=== PATIENT | female | born 1945 | race Caucasian/White ===

== ENCOUNTER 2017-03-26 13:17 | Inpatient (IN) | payer MEDICARE, BC ==
[~2017-03-26] VITALS: Ht 165.1 cm; Wt 77.0 kg
[2017-03-26] VITALS (12 sets, daily range): BP systolic 105–148; BP diastolic 67–102; PULSE 90–155; RESP 16–18; TEMP 98.5; O2SAT 94–99
[~2017-03-26 13:17] MED LIST: AMLO5 PO; CALC600T44 PO; CLON1TAB PO; LANS30 PO; LEXA10TA PO; LORTA5 PO; SYNT25TA PO; TELM1TAB56 PO
--- NOTE | 2017-03-26 13:43 | PD ---
HPI Chief Complaint: high blood pressure Time Seen by Provider: 13:35 Travel History International Travel<30 days: No Contact w/Intl Traveler<30days: No Traveled to known affect area: No History of Present Illness HPI This 72-year-old female says she has not felt well since . On that day she started with a sore throat. Then she is in periods of sweating and just not feeling well. She's been checking her blood pressure has been on the high side. She says her pulse rate is also been elevated she has a history of hypertension and is on Micardis. She does not have any history of heart disease. She has never smoked. She is not having chest pain. [facility] Past Medical History Diminished Hearing: No Hypertension: Yes Immunizations Current: Yes Thyroid Disease: Yes Menopausal: Yes Past Surgical History Hysterectomy: Yes Social History Alcohol Use: No Tobacco Use: No Substance Use: No Allergies-Medications (Allergen,Severity, Reaction): Coded Allergies: No Known Allergies (Unverified Allergy, Unknown, 03/26/17) Reported Meds & Prescriptions Reported Meds & Active Scripts Active Reported Calcium 600+D 200 (Calcium Carbonate-Vitamin D) 600-200 Mg-Unit Tab 1 Tab PO BID Lexapro (Escitalopram Oxalate) 10 Mg Tab 10 Mg PO DAILY Lansoprazole 30 Mg Capdr 30 Mg PO DAILY Norvasc (Amlodipine Besylate) 5 Mg Tab 5 Mg PO DAILY Synthroid (Levothyroxine Sodium) 100 Mcg Tab 100 Mcg PO DAILY Micardis (Telmisartan) 80 Mg Tab 80 Mg PO DAILY Clonazepam 1 Mg Tab 1 Mg PO BID Review of Systems General / Constitutional: No: Fever, Chills Eyes: No: Diploplia, Blurred Vision HENT: No: Headaches, Vertigo Cardiovascular: No: Chest Pain or Discomfort, Palpitations, Irregular Rhythm Respiratory: Positive: Cough, Shortness of Breath Gastrointestinal: No: Nausea, Vomiting Genitourinary: No: Urgency Musculoskeletal: No: Myalgias, Arthralgias Skin: No Rash, No Itching Neurologic: No: Weakness, Dizziness Psychiatric: No: Anxiety, Depression Endocrine: No: Heat Intolerance Hematologic/Lymphatic: No: Easy Bruising Physical Exam Narrative GENERAL: Well-developed female SKIN: Focused skin assessment warm/dry. HEAD: Atraumatic. Normocephalic. EYES: Pupils equal and round. No scleral icterus. No injection or drainage. ENT: No nasal bleeding or discharge. Mucous membranes pink and moist. NECK: Trachea midline. No JVD. CARDIOVASCULAR: Rapid irregular rate and rhythm. No murmur appreciated. RESPIRATORY: No accessory muscle use. Clear to auscultation. Breath sounds equal bilaterally. GASTROINTESTINAL: Abdomen soft, non-tender, nondistended. Hepatic and splenic margins not palpable. MUSCULOSKELETAL: No obvious deformities. No clubbing. No cyanosis. No edema. NEUROLOGICAL: Awake and alert. No obvious cranial nerve deficits. Motor grossly within normal limits. Normal speech. PSYCHIATRIC: Appropriate mood and affect; insight and judgment normal. Data Data Last Documented VS Vital Signs Date Time Temp Pulse Resp B/P (MAP) Pulse Ox O2 Delivery O2 Flow Rate FiO2 03/26/17 14:20 105/69 (81) 03/26/17 14:19 98 16 96 Room Air 03/26/17 13:42 98.5 Orders Orders Electrocardiogram (03/26/17 13:43) Complete Blood Count With Diff (03/26/17 13:43) Comprehensive Metabolic Panel (03/26/17 13:43) Troponin I (03/26/17 13:43) B-Type Natriuretic Peptide (03/26/17 13:43) Prothrombin Time / Inr (Pt) (03/26/17 13:43) Act Partial Throm Time (Ptt) (03/26/17 13:43) Urinalysis - C+S If Indicated (03/26/17 13:43) Magnesium (Mg) (03/26/17 13:43) Thyroid Stimulating Hormone (03/26/17 13:43) Chest, Single Ap (03/26/17 13:43) Ecg Monitoring (03/26/17 13:52) Blood Pressure (03/26/17 13:52) Iv Access Insert/Monitor (03/26/17 13:52) Oximetry (03/26/17 13:52) Vital Signs (03/26/17 13:52) Diltiazem Inj (Cardizem Inj) (03/26/17 14:00) Diltiazem Inj (Cardizem Inj) (03/26/17 14:00) Sodium Chloride 0.9% Flush (Ns Flush) (03/26/17 14:00) Admit Order (Ed Use Only) (03/26/17 14:39) Labs Laboratory Tests Test 03/26/17 13:55 White Blood Count 10.4 TH/MM3 Red Blood Count 5.21 MIL/MM3 Hemoglobin 15.0 GM/DL Hematocrit 46.2 % Mean Corpuscular Volume 88.8 FL Mean Corpuscular Hemoglobin 28.9 PG Mean Corpuscular Hemoglobin Concent 32.5 % Red Cell Distribution Width 12.6 % Platelet Count 315 TH/MM3 Mean Platelet Volume 9.0 FL Neutrophils (%) (Auto) 75.2 % Lymphocytes (%) (Auto) 15.0 % Monocytes (%) (Auto) 7.1 % Eosinophils (%) (Auto) 0.5 % Basophils (%) (Auto) 2.2 % Neutrophils # (Auto) 7.8 TH/MM3 Lymphocytes # (Auto) 1.6 TH/MM3 Monocytes # (Auto) 0.7 TH/MM3 Eosinophils # (Auto) 0.1 TH/MM3 Basophils # (Auto) 0.2 TH/MM3 CBC Comment DIFF FINAL Differential Comment Prothrombin Time 10.7 SEC Prothromb Time International Ratio 1.1 RATIO Activated Partial Thromboplast Time 24.7 SEC Blood Urea Nitrogen 26 MG/DL Creatinine 1.50 MG/DL Random Glucose 123 MG/DL Total Protein 7.8 GM/DL Albumin 3.7 GM/DL Calcium Level 9.0 MG/DL Magnesium Level 2.3 MG/DL Alkaline Phosphatase 147 U/L Aspartate Amino Transf (AST/SGOT) 20 U/L Alanine Aminotransferase (ALT/SGPT) 26 U/L Total Bilirubin 0.5 MG/DL Sodium Level 139 MEQ/L Potassium Level 3.7 MEQ/L Chloride Level 107 MEQ/L Carbon Dioxide Level 21.4 MEQ/L Anion Gap 11 MEQ/L Estimat Glomerular Filtration Rate 34 ML/MIN Troponin I LESS THAN 0.02 NG/ML B-Type Natriuretic Peptide 130 PG/ML Thyroid Stimulating Hormone 3rd Gen 1.150 uIU/ML [facility] Medical Decision Making Medical Screen Exam Complete: Yes Emergency Medical Condition: Yes Medical Record Reviewed: Yes Differential Diagnosis Differential includes pneumonia, CHF, dysrhythmia Narrative Course EKG shows atrial fibrillation with a rapid ventricular response. On the monitor the right. From 150-120. There is a right bundle branch block which has been present on previous EKGs. Patient has been given Cardizem bolus followed by drip with control of the heart rate. Diagnosis Primary Impression: Atrial fibrillation with rapid ventricular response Scripts Apixaban (Eliquis) 5 Mg Tab 5 MG PO BID for a fib for 30 Days, #60 TAB Prov: Abena Antunez 03/27/17 Metoprolol Tartrate (Lopressor) 50 Mg Tab 50 MG PO BID for a fib for 30 Days, #60 TAB Prov: Abena Antunez 03/27/17 Kevin Watson MD Mar 26, 2017 13:43
[2017-03-26] MEDS ORDERED: LANS30CA PO (13:50)
[2017-03-26] MEDS ORDERED: LEXA10TA PO (13:50)
[2017-03-26] MEDS ORDERED: TELM1TAB56 PO (13:50)
[2017-03-26] MEDS ORDERED: LEVO.1 PO (13:50)
[2017-03-26] MEDS ORDERED: CALCTAB19 PO (13:50)
[2017-03-26] MEDS ORDERED: CLON1TAB PO (13:50)
[2017-03-26] MEDS ORDERED: AMLO5 PO (13:50)
[2017-03-26] MEDS ORDERED: DILTIAZEM INJ 125 MG in SODIUM CHLORIDE 0.9% INJ 100 ML IV PRN ×2 (14:00→17:00)
[2017-03-26] MEDS ORDERED: DILTIAZEM HCL 25 MG/5 ML VIAL IV PUSH ONE (14:00)
[2017-03-26] MEDS ORDERED: SODIUM CHLORIDE 0.9% FLUSH 10 ML FLUSH IV FLUSH PRN ×2 (14:00→15:00)
[2017-03-26 14:10] LABS: AUTOMATED NEUTROPHIL # 7.8 TH/MM3 (1.8-7.7); BASOPHIL # 0.2 TH/MM3 (0-0.2); BASOPHIL % 2.2 % (0.0-2.0); EOSINOPHIL # 0.1 TH/MM3 (0-0.4); EOSINOPHIL % 0.5 % (0.0-4.0); HEMATOCRIT 46.2 % (35.0-46.0); LYMPHOCYTE # 1.6 TH/MM3 (1.0-4.8); MEAN CELL VOLUME 88.8 FL (80.0-100.0); MEAN CORPUSCULAR HEMOGLOBIN 28.9 PG (27.0-34.0); MEAN CORPUSCULAR HGB CONC 32.5 % (32.0-36.0); MONO % 7.1 % (0.0-8.0); MONOCYTE # 0.7 TH/MM3 (0-0.9); NEUT % 75.2 % (16.0-70.0); PLATELET COUNT 315 TH/MM3 (150-450); RED BLOOD COUNT 5.21 MIL/MM3 (4.00-5.30); RED CELL DISTRIBUTION WIDTH 12.6 % (11.6-17.2); WHITE BLOOD COUNT 10.4 TH/MM3 (4.0-11.0)
[2017-03-26 14:18] LABS: CHLORIDE 107 MEQ/L (98-107); SODIUM (NA) 139 MEQ/L (136-145)
--- NOTE | 2017-03-26 14:19 | RADRPT ---
EXAM DATE/TIME: 03/26/2017 13:52 [facility] COMPARISON: CHEST SINGLE AP, November 22, 2015, 20:10. INDICATIONS : Chest pain. MEDICAL HISTORY : None. SURGICAL HISTORY : None. ENCOUNTER: Initial ACUITY: 3 weeks PAIN SCORE: 2/10 LOCATION: Bilateral chest. FINDINGS: A single view of the chest demonstrates the lungs to be symmetrically aerated without evidence of mas s, infiltrate or effusion. There is mild atelectasis and scarring at the lung bases. The cardiomedia stinal contours are unremarkable. Osseous structures are intact. CONCLUSION: Mild atelectasis and/or scarring in the lung bases with no definite acute cardiac pulmonary disease. Andrew Gordon MD on March 26, 2017 at 14:16 Board Certified Radiologist. This report was verified electronically.
[2017-03-26 14:23] LABS: ALBUMIN 3.7 GM/DL (3.4-5.0); BICARBONATE 21.4 MEQ/L (21.0-32.0); BLOOD UREA NITROGEN 26 MG/DL (7-18); GLUCOSE,RANDOM 123 MG/DL (74-106); INTERNATIONAL NORMALIZED RATIO 1.1 RATIO; MAGNESIUM 2.3 MG/DL (1.5-2.5); PROTHROMBIN TIME - PATIENT 10.7 SEC (9.8-11.6)
[2017-03-26 14:26] LABS: ALT (GPT) 26 U/L (10-53); AST (GOT) 20 U/L (15-37); GLOMERULAR FILTRATION RATE 34 ML/MIN (>89)
[2017-03-26 14:27] LABS: TOTAL BILIRUBIN ADULT 0.5 MG/DL (0.2-1.0)
[2017-03-26 14:28] LABS: TOTAL PROTEIN 7.8 GM/DL (6.4-8.2)
[2017-03-26 14:29] LABS: ALKALINE PHOSPHATASE 147 U/L (45-117)
[2017-03-26 14:31] LABS: TROPONIN I LESS THAN 0.02 NG/ML (0.02-0.05)
[2017-03-26] MEDS ORDERED: BISACODYL 10 MG SUPP RECTAL PRN (15:00)
[2017-03-26] MEDS ORDERED: ACETAMINOPHEN 325 MG TAB PO PRN (15:00)
[2017-03-26] MEDS ORDERED: ONDANSETRON HCL 4 MG/2 ML VIAL IVP PRN (15:00)
[2017-03-26] MEDS ORDERED: MAGNESIUM HYDROXIDE SUSP 30 ML CUP PO PRN (15:00)
[2017-03-26] MEDS ORDERED: SENNOSIDES 8.6 MG TAB PO PRN (15:00)
[2017-03-26] MEDS ORDERED: LACTULOSE SYRUP 20 GM/30 ML CUP PO PRN (15:00)
[2017-03-26] MEDS ORDERED: NALOXONE HCL 0.4 MG/ML AMP IV PUSH PRN (15:00)
--- NOTE | 2017-03-26 15:52 | HHI.HP ---
HPI Service [facility] Primary Care Physician Gabrielle Roque MD Admission Diagnosis NEW ONSET ATRIAL FIBRILLATION, RAPID VENTRICULAR RESPONSE Diagnoses: Chief Complaint: sob Travel History International Travel<30 Days: No Contact w/Intl Traveler <30 Da: No Traveled to Known Affected Are: No History of Present Illness This 72-year-old female with PMH of HTN, hypothyroidism, anxiety/depression, GERD says she has not felt well since . On that day she started with a sore throat. Then she is in periods of sweating and just not feeling well. She has been coughing but cough is getting better. She's been checking her blood pressure has been on the high side. She says her pulse rate is also been elevated she has a history of hypertension and is on Micardis. Says she felt palpitations today and some sob associated. She does not have any history of heart disease. She has never smoked, no illicit drug use or EtOH use. She is not having chest pain, lightheadedness. No n/v/d/c. No wheezing. Patient has seen Dr Baker in the past and would like to be consulted Review of Systems Except as stated in HPI: all other systems reviewed are Neg Past Family Social History Past Medical History HTN, hypothyroidism, anxiety/depression, GERD Past Surgical History Appendectomy Back surgery Cardiac [place] [address] Baker Reported Medications Reported Meds & Active Scripts Active Reported Calcium 600+D 200 (Calcium Carbonate-Vitamin D) 600-200 Mg-Unit Tab 1 Tab PO BID Lexapro (Escitalopram Oxalate) 10 Mg Tab 10 Mg PO DAILY Lansoprazole 30 Mg Capdr 30 Mg PO DAILY Norvasc (Amlodipine Besylate) 5 Mg Tab 5 Mg PO DAILY Synthroid (Levothyroxine Sodium) 100 Mcg Tab 100 Mcg PO DAILY Micardis (Telmisartan) 80 Mg Tab 80 Mg PO DAILY Clonazepam 1 Mg Tab 1 Mg PO BID Allergies: Coded Allergies: No Known Allergies (Unverified Allergy, Unknown, 03/26/17) Family History Parents with HTN Social History Denies EtOH use, tobacco use or illicit drug use Physical Exam Vital Signs Vital Signs Date Time Temp Pulse Resp B/P (MAP) Pulse Ox O2 Delivery O2 Flow Rate FiO2 03/26/17 15:11 94 16 111/70 (84) 94 Room Air 03/26/17 14:20 105/69 (81) 03/26/17 14:19 98 16 105/69 (81) 96 Room Air 03/26/17 14:17 96 105/69 03/26/17 14:01 97 Room Air 03/26/17 14:01 140 16 139/102 (114) 98 Room Air 03/26/17 13:42 98.5 155 16 137/80 (99) 98 Physical Exam GENERAL: This is a well-nourished, well-developed patient, in no apparent distress. SKIN: No rashes, ecchymoses or lesions. Cool and dry. HEAD: Atraumatic. Normocephalic. No temporal or scalp tenderness. EYES: Pupils equal round and reactive. Extraocular motions intact. No scleral icterus. No injection or drainage. ENT: Nose without bleeding, purulent drainage or septal hematoma. Throat without erythema, tonsillar hypertrophy or exudate. Uvula midline. Airway patent. NECK: Trachea midline. No JVD or lymphadenopathy. Supple, nontender, no meningeal signs. CARDIOVASCULAR: Irregular rate and rhythm without murmurs, gallops, or rubs. RESPIRATORY: Clear to auscultation. Breath sounds equal bilaterally. No wheezes , rales, or rhonchi. GASTROINTESTINAL: Abdomen soft, non-tender, nondistended. No hepato-splenomegaly , or palpable masses. No guarding. MUSCULOSKELETAL: Extremities without clubbing, cyanosis, or edema. No joint tenderness, effusion, or edema noted. No calf tenderness. Negative Homans sign bilaterally. NEUROLOGICAL: Awake and alert. Cranial nerves II through XII intact. Motor and sensory grossly within normal limits. Five out of 5 muscle strength in all muscle groups. Normal speech. Laboratory Laboratory Tests Test 03/26/17 13:55 White Blood Count 10.4 Red Blood Count 5.21 Hemoglobin 15.0 Hematocrit 46.2 Mean Corpuscular Volume 88.8 Mean Corpuscular Hemoglobin 28.9 Mean Corpuscular Hemoglobin Concent 32.5 Red Cell Distribution Width 12.6 Platelet Count 315 Mean Platelet Volume 9.0 Neutrophils (%) (Auto) 75.2 Lymphocytes (%) (Auto) 15.0 Monocytes (%) (Auto) 7.1 Eosinophils (%) (Auto) 0.5 Basophils (%) (Auto) 2.2 Neutrophils # (Auto) 7.8 Lymphocytes # (Auto) 1.6 Monocytes # (Auto) 0.7 Eosinophils # (Auto) 0.1 Basophils # (Auto) 0.2 CBC Comment DIFF FINAL Differential Comment Prothrombin Time 10.7 Prothromb Time International Ratio 1.1 Activated Partial Thromboplast Time 24.7 Blood Urea Nitrogen 26 Creatinine 1.50 Random Glucose 123 Total Protein 7.8 Albumin 3.7 Calcium Level 9.0 Magnesium Level 2.3 Alkaline Phosphatase 147 Aspartate Amino Transf (AST/SGOT) 20 Alanine Aminotransferase (ALT/SGPT) 26 Total Bilirubin 0.5 Sodium Level 139 Potassium Level 3.7 Chloride Level 107 Carbon Dioxide Level 21.4 Anion Gap 11 Estimat Glomerular Filtration Rate 34 Troponin I LESS THAN 0.02 B-Type Natriuretic Peptide 130 Thyroid Stimulating Hormone 3rd Gen 1.150 Result Diagram: 03/26/17 1355 03/26/17 1355 Imaging Last Impressions Chest X-Ray 03/26/17 1343 Signed Impressions: Service Date/Time: March 13:52 - CONCLUSION: Mild atelectasis and/or scarring in the lung bases with no definite acute cardiac pulmonary disease. MD Steve Ash VTE Risk Assessment Steve VTE Risk Assessment: Mod/High Risk (score >= 2) Caprini Risk Assessment Model Point Value = 1 Point Value = 2 Point Value = 3 Point Value = 5 Age 41-60 Minor surgery BMI > 25 kg/m2 Swollen legs Varicose veins or History of unexplained or recurrent spontaneous Oral contraceptives or hormone replacement Sepsis (< 1 month) Serious lung disease, including pneumonia (< 1 month) Abnormal pulmonary function Acute myocardial infarction Congestive heart failure (< 1 month) History of inflammatory bowel disease Medical patient at bed rest Age 61-74 Arthroscopic surgery Major open surgery (> 45 min) Laparoscopic surgery (> 45 min) Malignancy Confined to bed (> 72 hours) Immobilizing plaster cast Central venous access Age >= 75 History of VTE Family history of VTE Factor V Leiden Prothrombin [id number] Lupus anticoagulant Anticardiolipin antibodies Elevated serum homocysteine Heparin-induced thrombocytopenia Other congenital or acquired thrombophilia Stroke (< 1 month) Elective arthroplasty Hip, pelvis, or leg fracture Acute spinal cord injury (< 1 month) Prophylaxis Regimen Total Risk Factor Score Risk Level Prophylaxis Regimen 0-1 Low Early ambulation 2 Moderate Order ONE of the following: *Sequential Compression Device (SCD) *Heparin 5000 units SQ BID 3-4 Higher Order ONE of the following medications: *Heparin 5000 units SQ TID *Enoxaparin/Lovenox 40 mg SQ daily (WT < 150 kg, CrCl > 30 mL/min) *Enoxaparin/Lovenox 30 mg SQ daily (WT < 150 kg, CrCl > 10-29 mL/min) *Enoxaparin/Lovenox 30 mg SQ BID (WT < 150 kg, CrCl > 30 mL/min) AND/OR *Sequential Compression Device (SCD) 5 or more Highest Order ONE of the following medications: *Heparin 5000 units SQ TID (Preferred with Epidurals) *Enoxaparin/Lovenox 40 mg SQ daily (WT < 150 kg, CrCl > 30 mL/min) *Enoxaparin/Lovenox 30 mg SQ daily (WT < 150 kg, CrCl > 10-29 mL/min) *Enoxaparin/Lovenox 30 mg SQ BID (WT < 150 kg, CrCl > 30 mL/min) AND *Sequential Compression Device (SCD) Assessment and Plan Assessment and Plan New onset Atrial fibrillation with rapid ventricular response EKG shows atrial fibrillation with a rapid ventricular response. HR 120-150. There is a right bundle branch block which has been present on previous EKGs. Started on Cardizem bolus followed by drip with control of the heart rate. Transition to PO Cardizem Monitor on assistant food service manager BP Order 2D ECHO [id number] Vasc score of 3 start eliquis Check A1c Has seen Dr Baker in the past and wants to be consulted LATRELL Cr 1.5 on admission however not known kidney function, last Cr 2 years ago 0.9 . Start IVF. Monitor kidney function. Avoid nephrotoxic agents. Check UA. HTN, hypothyroidism, depression/anxiety, GERD stable. Restart home meds as appropriate Monitor BP and adjust meds DVT ppx [email or web address] frank Discussed Condition With nurse, patient, ED physician Physician Certification 2 Midnight Certification Type: Admission for Inpatient Services Order for Inpatient Services The services are ordered in accordance with Medicare regulations or non- Medicare payer requirements, as applicable. In the case of services not specified as inpatient-only, they are appropriately provided as inpatient services in accordance with the 2-midnight benchmark. Estimated LOS (days): 3 days is the estimated time the patient will need to remain in the hospital, assuming treatment plan goals are met and no additional complications. Post-Hospital Plan: Home Isidra Regan MD Mar 26, 2017 15:52
[2017-03-26] MEDS ORDERED: ENOXAPARIN SODIUM 40 MG/0.4 ML SYRINGE SQ SCH (16:00)
[2017-03-26] MEDS: DILTIAZEM HCL 30 MG TAB PO SCH ×2 (18:48→21:00)
[2017-03-26] MEDS: SODIUM CHLORIDE 0.9% FLUSH 10 ML FLUSH IV FLUSH SCH (21:00)
[2017-03-26] MEDS: DOCUSATE SODIUM 50 MG/SENNA 8.6 MG TAB PO SCH (22:00)
[2017-03-26] MEDS: CALCIUM/VITAMIN D 250 MG/125 U TAB PO SCH (22:00)
[2017-03-26] MEDS: clonazePAM 1 MG TAB PO SCH (22:00)
[2017-03-26] MEDS: APIXABAN 5 MG TABLET PO SCH (22:00)
[2017-03-26 22:18] LABS: BILIRUBIN, URINE NEG (NEG); BLOOD, URINE NEG (NEG); GLUCOSE,URINE NEG (NEG); KETONE, URINE TRACE mg/dL (NEG); NITRITE,URINE NEG (NEG); URINE LEUKOCYTE ESTERASE NEG (NEG)
[2017-03-26 22:24] LABS: URINE COLOR YELLOW (YELLW/STRAW)
[2017-03-26 22:25] LABS: RBC, URINE 0-3 /hpf (0-3); SQUAMOUS EPITHELIAL CELL URINE 0-5 /hpf (0-5); WHITE BLOOD CELL CLUMPS FEW
[2017-03-27] VITALS (13 sets, daily range): BP systolic 127–159; BP diastolic 72–90; PULSE 80–108; RESP 8–19; TEMP 97.9–98.7; O2SAT 94–99
--- NOTE | 2017-03-27 00:01 | RADRPT ---
EXAM DATE/TIME: 03/26/2017 23:21 [facility] COMPARISON: No previous studies available for comparison. INDICATIONS : Increased Bun and Creatinine. MEDICAL HISTORY : Thyroid disease. Hypertension. GERD. SURGICAL HISTORY : Back surgery. Appendectomy. Hysterectomy. ENCOUNTER: Initial ACUITY: 1 day PAIN SCORE: 0/10 LOCATION: Bilateral inguinal MEASUREMENTS: RIGHT KIDNEY: 11.5 x 4.6 x 5.5 cm LEFT KIDNEY: 10.2 x 4.4 x 5.0 cm FINDINGS: RIGHT KIDNEY: Renal cortex is normal in thickness and echotexture. No hydronephrosis, stone, or mass. LEFT KIDNEY: Renal cortex is normal in thickness and echotexture. No hydronephrosis, stone, or mass. BLADDER: Within normal limits given the degree of distension. CONCLUSION: Unremarkable bilateral renal ultrasound. Walt Lozoya MD on March 26, 2017 at 23:59 Board Certified Radiologist. This report was verified electronically.
[2017-03-27 05:43] LABS: AUTOMATED NEUTROPHIL # 5.9 TH/MM3 (1.8-7.7); BASOPHIL % 0.5 % (0.0-2.0); EOSINOPHIL # 0.1 TH/MM3 (0-0.4); EOSINOPHIL % 1.3 % (0.0-4.0); HEMATOCRIT 45.2 % (35.0-46.0); HEMOGLOBIN 14.8 GM/DL (11.6-15.3); LYMPH % 23.7 % (9.0-44.0); LYMPHOCYTE # 2.1 TH/MM3 (1.0-4.8); MEAN CELL VOLUME 88.5 FL (80.0-100.0); MEAN CORPUSCULAR HGB CONC 32.8 % (32.0-36.0); MEAN PLATELET VOLUME 9.1 FL (7.0-11.0); MONO % 7.2 % (0.0-8.0); MONOCYTE # 0.6 TH/MM3 (0-0.9); NEUT % 67.3 % (16.0-70.0); PLATELET COUNT 275 TH/MM3 (150-450); RED CELL DISTRIBUTION WIDTH 12.8 % (11.6-17.2); WHITE BLOOD COUNT 8.7 TH/MM3 (4.0-11.0)
[2017-03-27 05:52] LABS: CHLORIDE 105 MEQ/L (98-107); SODIUM (NA) 140 MEQ/L (136-145)
[2017-03-27 05:55] LABS: CALCIUM 8.7 MG/DL (8.5-10.1)
[2017-03-27 05:56] LABS: BICARBONATE 26.6 MEQ/L (21.0-32.0); BLOOD UREA NITROGEN 24 MG/DL (7-18); GLUCOSE,RANDOM 105 MG/DL (74-106)
[2017-03-27 05:59] LABS: GLOMERULAR FILTRATION RATE 54 ML/MIN (>89)
[2017-03-27] MEDS ORDERED: LEVOTHYROXINE SODIUM 100 MCG TAB PO SCH (06:00)
[2017-03-27] MEDS: clonazePAM 1 MG TAB PO SCH (08:20)
[2017-03-27] MEDS: CALCIUM/VITAMIN D 250 MG/125 U TAB PO SCH (08:20)
[2017-03-27] MEDS: DOCUSATE SODIUM 50 MG/SENNA 8.6 MG TAB PO SCH (08:20)
[2017-03-27] MEDS: APIXABAN 5 MG TABLET PO SCH (08:21)
[2017-03-27] MEDS: DILTIAZEM HCL 30 MG TAB PO SCH (08:21)
--- NOTE | 2017-03-27 08:38 | HHI.PR ---
Subjective Remarks Patient in nad. Feels better no palpitations, HR better controlled. No sob, cp, cough. No fever or chillls. No n/v/d/c. Objective Vitals Vital Signs Date Time Temp Pulse Resp B/P (MAP) Pulse Ox O2 Delivery O2 Flow Rate FiO2 03/27/17 07:15 92 16 135/87 (103) 97 03/27/17 05:32 98 16 132/80 (97) 99 Room Air 03/27/17 01:05 99 21 03/27/17 00:05 98.7 92 16 159/86 (110) 99 Room Air 03/26/17 23:15 92 16 144/79 (100) 99 03/26/17 22:05 112 18 148/89 (108) 99 Room Air 03/26/17 20:26 90 16 125/78 (94) 99 03/26/17 19:24 92 16 135/84 (101) 99 Room Air 03/26/17 19:24 92 99 Room Air 03/26/17 18:49 98 16 134/67 (89) 98 Room Air 03/26/17 16:16 92 16 141/88 (105) 97 Room Air 03/26/17 16:00 97 21 03/26/17 15:11 94 16 111/70 (84) 94 Room Air 03/26/17 14:20 105/69 (81) 03/26/17 14:19 98 16 105/69 (81) 96 Room Air 03/26/17 14:17 96 105/69 03/26/17 14:01 97 Room Air 03/26/17 14:01 140 16 139/102 (114) 98 Room Air 03/26/17 13:42 98.5 155 16 137/80 (99) 98 I/O 03/26/17 03/26/17 03/26/17 03/27/17 03/27/17 03/27/17 07:00 15:00 23:00 07:00 15:00 23:00 Intake Total 400 ml Output Total 500 ml 300 ml Balance -100 ml -300 ml Intake Oral 400 ml Output Urine Total 500 ml 300 ml # Voids 2 3 # Bowel Movements 0 Result Diagram: 03/27/17 0530 03/27/17 0530 Imaging Last Impressions Chest X-Ray 03/26/17 1343 Signed Impressions: Service Date/Time: March 13:52 - CONCLUSION: Mild atelectasis and/or scarring in the lung bases with no definite acute cardiac pulmonary disease. Andrew Gordon MD Renal Ultrasound 03/26/17 0000 Signed Impressions: Service Date/Time: March 23:21 - CONCLUSION: Unremarkable bilateral renal ultrasound. Walt Lozoya MD Objective Remarks GENERAL: This is a well-nourished, well-developed patient, in no apparent distress. CARDIOVASCULAR: Irregular rate and rhythm without murmurs, gallops, or rubs. RESPIRATORY: Clear to auscultation. Breath sounds equal bilaterally. No wheezes , rales, or rhonchi. GASTROINTESTINAL: Abdomen soft, non-tender, nondistended. No hepato-splenomegaly , or palpable masses. No guarding. MUSCULOSKELETAL: Extremities without clubbing, cyanosis, or edema. No joint tenderness, effusion, or edema noted. No calf tenderness. Negative Homans sign bilaterally. NEUROLOGICAL: Awake and alert. Cranial nerves II through XII intact. Motor and sensory grossly within normal limits. Five out of 5 muscle strength in all muscle groups. Normal speech. A/P Assessment and Plan New onset Atrial fibrillation with rapid ventricular response EKG shows atrial fibrillation with a rapid ventricular response. HR 120-150. There is a right bundle branch block which has been present on previous EKGs. Started on Cardizem bolus followed by drip with control of the heart rate. Transition to PO Cardizem Monitor on investigation officer BP 2D ECHO pending [id number] Vasc score of 3 start Eliquis A1c pending Has seen Dr Samuel lazaro in the past and wants to be consulted. Start metoprolol 50 mg po bid. ECHO fairly normal seen by cardiology cleared patient for DC. LATRELL Cr 1.5 on admission however not known kidney function, last Cr 2 years ago 0.9 . Start IVF. Monitor kidney function. Avoid nephrotoxic agents. Check UA. Cr at 1 today improved significantly HTN, hypothyroidism, depression/anxiety, GERD stable. Restart home meds as appropriate Monitor BP and adjust meds DVT ppx [email or web address] frank Discussed Condition With nurse, patient Discharge Planning DC home in stable condition to follow up as OP with PCP and consultants. Diet healthy heart diet Activity ad andreas as tolerated Meds per med reconciliations Discharge spent at discharge > 30 minutes Isidra Regan MD Mar 27, 2017 08:37
[2017-03-27] MEDS ORDERED: LOSARTAN 50 MG TAB PO SCH (09:00)
[2017-03-27] MEDS ORDERED: MAGNESIUM OXIDE 400 MG TAB PO ONE (09:00)
[2017-03-27] MEDS ORDERED: PANTOPRAZOLE SOD 40 MG DELAYED RELEASE TAB PO SCH (09:00)
[2017-03-27] MEDS ORDERED: ESCITALOPRAM OXALATE 10 MG TAB PO SCH (09:00)
[2017-03-27] MEDS ORDERED: amLODIPine BESYLATE 5 MG TAB PO SCH (09:00)
[2017-03-27] MEDS ORDERED: POTASSIUM CHLORIDE 10 MEQ CONTROLLED RELEASE TAB PO ONE (09:00)
[2017-03-27] MEDS: SODIUM CHLORIDE 0.9% FLUSH 10 ML FLUSH IV FLUSH SCH (10:39)
[2017-03-27] MEDS ORDERED: METOPROLOL TARTRATE 50 MG TAB PO ONE (11:00)
--- NOTE | 2017-03-27 11:33 | ECHRPT ---
Indication: ATRIAL FIB/ FLUTTER CONCLUSIONS Normal left ventricular size. Mild concentric left ventricular hypertrophy. The left ventricular systolic function is grossly normal on limited imaging. The left atrial size is [id number] dilated. The right atrial size is mildly dilated. No atrial level shunt is demonstrated by color flow Doppler interrogation. There is trace tricuspid valve regurgitation. The estimated pulmonary arterial pressure is 37.2 mmHg. BP: 135 / 87 HR: 92 Rhythm: Atrial fibrillation, Atrial flut ter MEASUREMENTS (Male / Female) Normal Values Technical Quality:Very technically difficult study 2D ECHO LV Diastolic Diameter PLAX 3.4 cm 4.2 - 5.9 / 3.9 - 5.3 cm LV Systolic Diameter PLAX 2.1 cm IVS Diastolic Thickness 1.2 cm 0.6 - 1.0 / 0.6 - 0.9 cm LVPW Diastolic Thickness 1.2 cm 0.6 - 1.0 / 0.6 - 0.9 cm LV Relative Wall Thickness 0.7 LVOT Diameter 2.1 cm Aortic Root Diameter 3.1 cm LA Systolic Diameter LX 2.9 cm 3.0 - 4.0 / 2.7 - 3.8 cm M-MODE AV Cusp Separation MM 1.8 cm DOPPLER AV Peak Velocity 108.8 cm/s AV Peak Gradient 4.7 mmHg AV Mean Gradient 3.0 mmHg AV Velocity Time Integral 14.3 cm LVOT Peak Velocity 77.0 cm/s LVOT Peak Gradient 2.4 mmHg LVOT Velocity Time Integral 12.4 cm AV Area Cont Eq vti 3.0 cm AV Area Cont Eq pk 2.5 cm Mitral E Point Velocity 88.8 cm/s LV E' Lateral Velocity 10.4 cm/s Mitral E to LV E' Lateral Ratio 8.5 LV E' Septal Velocity 7.5 cm/s Mitral E to LV E' Septal Ratio 11.8 TR Peak Velocity 261.0 cm/s TR Peak Gradient 27.2 mmHg Right Atrial Pressure 10.0 mmHg Pulmonary Artery Systolic Pressu 37.2 mmHg Right Ventricular Systolic Press 37.2 mmHg PV Peak Velocity 49.3 cm/s PV Peak Gradient 1.0 mmHg FINDINGS LEFT VENTRICLE Normal left ventricular size. Mild concentric left ventricular hypertrophy. The left ventricular systolic function is grossly normal on limited imaging. RIGHT VENTRICLE Normal right ventricular size and systolic function. LEFT ATRIUM The left atrial size is [id number] dilated. RIGHT ATRIUM The right atrial size is mildly dilated. ATRIAL SEPTUM No atrial level shunt is demonstrated by color flow Doppler interrogation. AORTA The aortic root and proximal ascending aorta are normal in size on limited imaging. MITRAL VALVE Structurally normal mitral valve. No mitral valve stenosis or regurgitation. AORTIC VALVE Trileaflet aortic valve. No aortic valve stenosis or regurgitation. TRICUSPID VALVE There is trace tricuspid valve regurgitation. The estimated pulmonary arterial pressure is 37.2 mmHg. PULMONARY VALVE No pulmonary valve regurgitation or stenosis. VESSELS The inferior vena cava is normal in size. PERICARDIUM No pericardial effusion. Christiano Ralph MD, FACC (Electronically Signed) Final Date:27 March 2017 11:32
--- NOTE | 2017-03-27 12:12 | HHI.DCPOC ---
Discharge Care Plan Diagnosis: (1) Atrial fibrillation with rapid ventricular response Goals to Promote Your Health * To prevent worsening of your condition and complications * To maintain your health at the optimal level Directions to Meet Your Goals Take your medications as prescribed Follow your dietary instruction Follow activity as directed Keep your appointments as scheduled Take your immunizations and boosters as scheduled If your symptoms worsen call your PCP, if no PCP go to Urgent Care Center or Emergency Room Smoking is Dangerous to Your Health. Avoid second hand smoke Call the 24-hour hour crisis hotline for domestic abuse at Abena Antunez Mar 27, 2017 12:12
[2017-03-27] MEDS ORDERED: APIX5TAB PO (12:15)
[2017-03-27] MEDS ORDERED: METO-309 PO (12:15)
--- NOTE | 2017-03-27 14:18 | EKG ---
Date Performed: 03/26/2017 Time Performed: 13:44:22 PTAGE: 72 years EKG: ATRIAL FIBRILLATION WITH RAPID VENTRICULAR RESPONSE RIGHT BUNDLE BRANCH BLOCK ST DEVIATION AND MODERATE T-WAVE ABNORMALITY, CONSIDER INFERIOR ISCHEMIA ABNORMAL ECG PREVIOUS TRACING : 11/22/2015 22.20 Patient is now in atrial fibrillation with rapid ventricula r response. DOCTOR: Vernon Martinez Interpretating Date/Time 03/27/2017 14:16:42
[2017-03-27 15:36] LABS: HEMOGLOBIN A1C 6.3 % (4.3-6.0)
--- NOTE | 2017-03-27 16:43 | MB ---
cc: TY PACKER MD DATE OF CONSULTATION 03/27/[address] Regan CHIEF COMPLAINT Atrial fibrillation. IMPRESSION 1. Atrial fibrillation. 2. History of hypertension. RECOMMENDATIONS She has been anticoagulated with Eliquis, given metoprolol 50 mg twice a day for rate control. I will discharge her and see her next week in the office. SUBJECTIVE Ms. Mendoza is a 72-year-old white female, of a patient of ours, who has not been seen in the office in some time. She had the flu last week and then developed a rapid heart rate up to 116 yesterday evening and came to the emergency room. She was found to be in atrial fibrillation, subsequently put in the intensive care unit, given Lovenox and a Diltiazem drip. She feels well and wishes to go home. She denies chest tightness, heaviness, fullness or pressure. Troponins were negative. Echocardiogram is pending. PAST MEDICAL HISTORY Remarkable for a hysterectomy MEDICATIONS 1. Micardis 2. Diltiazem 3. Metoprolol 4. Eliquis recently started ALLERGIES No known medication allergies. SOCIAL HISTORY Does not smoke or drink. Lives at home with her who is invalid. FAMILY HISTORY Noncontributory. REVIEW OF SYSTEMS GI: No hematemesis, melena per rectum. RESPIRATORY: Bronchitis although she did have flu recently NEUROLOGIC: No history of stroke, epilepsy, TIA. Other twelve-point review of systems negative. PHYSICAL EXAMINATION VITAL SIGNS: Blood pressure is 112/64, heart rate 86 and irregular. HEENT: Sclerae clear. NECK: Neck veins are not distended. LUNGS: Clear to auscultation and percussion. CARDIAC: Irregular rhythm. No murmurs or gallops. ABDOMEN: Mildly obese without organomegaly, mass or bruits. EXTREMITIES: Without edema. Right-handed, fluent speech, moves all extremities. Gait is intact. Laboratory and electrocardiogram were reviewed. DISCUSSION None Ty Packer MD [facility]/ /4:16 PM /4:29 PM
[2017-03-27] MEDS ORDERED: METOPROLOL TARTRATE 50 MG TAB PO SCH (21:00)
== END 2017-03-27 13:15 | disposition home or self-care (01) | DRG 309 ==
LOC: PHED 13:17 → PHEDA 14:40 → PHEDH 18:46 → PHICU 03-27 07:27
PROVIDERS: ADMIT Hospitalist; ATTEND Hospitalist
DX: I48.91 Unspecified atrial fibrillation (principal); N17.9 Acute kidney failure, unspecified; I45.10 Unspecified right bundle-branch block; I10 Essential (primary) hypertension; E03.9 Hypothyroidism, unspecified; J02.9 Acute pharyngitis, unspecified; F32.9 Major depressive disorder, single episode, unspecified; F41.9 Anxiety disorder, unspecified; K21.9 Gastro-esophageal reflux disease without esophagitis; Z90.710 Acquired absence of both cervix and uterus
CPT/HCPCS: 71045; 76775; 80048; 80053; 81001; 82948; 83036; 83735; 83880; 84443; 84484; 85025; 85610; 85730; 87086; 93005; 93306; 96365; 96375; J1650

== ENCOUNTER 2017-04-28 09:06 | Emergency (ER) | payer MEDICARE, BC ==
[~2017-04-28] VITALS: Ht 165.1 cm; Wt 77.0 kg
[~2017-04-28 09:06] MED LIST changes: +APIX5TAB PO; -CALC600T44 PO; +CALCTAB19 PO; -LANS30 PO; +LANS30CA PO; +LEVO.1 PO; -LORTA5 PO; +METO-309 PO; -SYNT25TA PO
[2017-04-28 09:22] VITALS: BP 136/74; PULSE 69; RESP 18; TEMP 100; O2SAT 96
[2017-04-28] MEDS ORDERED: SODIUM CHLOR 0.9% 1000 ML INJ 1,000 ML IV SCH (09:36)
[2017-04-28] MEDS ORDERED: SODIUM CHLORIDE 0.9% FLUSH 10 ML FLUSH IV FLUSH PRN (09:45)
[2017-04-28] MEDS ORDERED: ONDANSETRON HCL 4 MG/2 ML VIAL IVP ONE (09:45)
[2017-04-28 10:08] LABS: AUTOMATED NEUTROPHIL # 12.5 TH/MM3 (1.8-7.7); BASOPHIL # 0.4 TH/MM3 (0-0.2); BASOPHIL % 2.7 % (0.0-2.0); HEMATOCRIT 45.8 % (35.0-46.0); HEMOGLOBIN 14.9 GM/DL (11.6-15.3); LYMPH % 2.4 % (9.0-44.0); LYMPHOCYTE # 0.3 TH/MM3 (1.0-4.8); MEAN CELL VOLUME 88.8 FL (80.0-100.0); MEAN CORPUSCULAR HEMOGLOBIN 28.9 PG (27.0-34.0); MEAN CORPUSCULAR HGB CONC 32.5 % (32.0-36.0); MEAN PLATELET VOLUME 9.4 FL (7.0-11.0); MONO % 4.8 % (0.0-8.0); MONOCYTE # 0.7 TH/MM3 (0-0.9); NEUT % 90.1 % (16.0-70.0); PLATELET COUNT 205 TH/MM3 (150-450); RED BLOOD COUNT 5.16 MIL/MM3 (4.00-5.30); RED CELL DISTRIBUTION WIDTH 13.4 % (11.6-17.2); WHITE BLOOD COUNT 13.9 TH/MM3 (4.0-11.0)
--- NOTE | 2017-04-28 10:12 | PD ---
HPI Chief Complaint: Abdominal Pain Time Seen by Provider: 09:36 Travel History International Travel<30 days: No Contact w/Intl Traveler<30days: No Traveled to known affect area: No History of Present Illness HPI 72-year-old female complains of nausea vomiting and diarrhea for about 16-18 hours. Two hours prior to symptom onset she ate a crab cake which to her tasted a little funny however had one as well and had no sickness. She reports diarrhea every 10 minutes at times throughout the course of the evening. The vomiting decreased in frequency over the course of the night. Since her arrival here is that since have improved significantly. She denies fever. She denies abdominal pain however does report tenderness first noted at the time of exam by EMS. No blood observed in emesis or diarrhea. PFSH Past Medical History Hx Anticoagulant Therapy: Yes Anxiety: Yes Depression: Yes (TREATED FOR DEPRESSION, [employer]. ) Heart Rhythm Problems: Yes (afib) Cancer: No Diabetes: No Diminished Hearing: No GERD: Yes Genitourinary: No Hypertension: Yes Medical other: Yes (rls) Musculoskeletal: No Neurologic: No Respiratory: No Immunizations Current: Yes Thyroid Disease: Yes Tetanus Vaccination: > 5 Years Influenza Vaccination: Yes Menopausal: Yes Past Surgical History Appendectomy: Yes Gynecologic Surgery: Yes (HYSTERECTOMY) Hysterectomy: Yes Tonsillectomy: Yes Other Surgery: Yes (back surgery) Social History Alcohol Use: No Tobacco Use: No Substance Use: No Allergies-Medications (Allergen,Severity, Reaction): Coded Allergies: No Known Allergies (Unverified Allergy, Unknown, 04/28/17) Reported Meds & Prescriptions Reported Meds & Active Scripts Active Lomotil (Diphenoxylate-Atropine) 2.5-0.025 Mg Tab 1 Tab PO Q6H PRN Phenergan (Promethazine HCl) 25 Mg Tablet 25 Mg PO Q6H PRN Eliquis (Apixaban) 5 Mg Tab 5 Mg PO BID 30 Days Lopressor (Metoprolol Tartrate) 50 Mg Tab 50 Mg PO BID 30 Days Reported Calcium 600+D 200 (Calcium Carbonate-Vitamin D) 600-200 Mg-Unit Tab 1 Tab PO BID Lexapro (Escitalopram Oxalate) 10 Mg Tab 10 Mg PO DAILY Lansoprazole 30 Mg Capdr 30 Mg PO DAILY Norvasc (Amlodipine Besylate) 5 Mg Tab 5 Mg PO DAILY Synthroid (Levothyroxine Sodium) 100 Mcg Tab 100 Mcg PO DAILY Micardis (Telmisartan) 80 Mg Tab 80 Mg PO DAILY Clonazepam 1 Mg Tab 1 Mg PO BID Review of Systems Except as stated in HPI: all other systems reviewed are Neg General / Constitutional: No: Fever Physical Exam Narrative GENERAL: Pleasant well-nourished well-developed 72-year-old female Vital Signs Date Time Temp Pulse Resp B/P (MAP) Pulse Ox O2 Delivery O2 Flow Rate FiO2 04/28/17 09:22 100.0 69 18 136/74 (94) 96 SKIN: Warm and dry. HEAD: Atraumatic. Normocephalic. EYES: Pupils equal and round. No scleral icterus. No injection or drainage. ENT: No nasal bleeding or discharge. Mucous membranes pink and moist. NECK: Trachea midline. No JVD. CARDIOVASCULAR: Regular rate and rhythm. RESPIRATORY: No accessory muscle use. Clear to auscultation. Breath sounds equal bilaterally. GASTROINTESTINAL: Abdomen soft, non-tender, nondistended. Hepatic and splenic margins not palpable. MUSCULOSKELETAL: Extremities without clubbing, cyanosis, or edema. No obvious deformities. NEUROLOGICAL: Awake and alert. No obvious cranial nerve deficits. Motor grossly within normal limits. Five out of 5 muscle strength in the arms and legs. Normal speech. PSYCHIATRIC: Appropriate mood and affect; insight and judgment normal. Data Data Last Documented VS Vital Signs Date Time Temp Pulse Resp B/P (MAP) Pulse Ox O2 Delivery O2 Flow Rate FiO2 04/28/17 10:40 60 17 140/60 (86) 97 Room Air 04/28/17 09:22 100.0 Orders Orders Complete Blood Count With Diff (04/28/17 09:36) Comprehensive Metabolic Panel (04/28/17 09:36) Lipase (04/28/17 09:36) Urinalysis - C+S If Indicated (04/28/17 09:36) Iv Access Insert/Monitor (04/28/17 09:36) Ecg Monitoring (04/28/17 09:36) Oximetry (04/28/17 09:36) Ondansetron Inj (Zofran Inj) (04/28/17 09:45) Sodium Chlor 0.9% 1000 Ml Inj (Ns 1000 M (04/28/17 09:36) Sodium Chloride 0.9% Flush (Ns Flush) (04/28/17 09:45) Ct Abd/Pel W Iv Contrast(Rout) (04/28/17 10:12) Iohexol 350 Inj (Omnipaque 350 Inj) (04/28/17 11:48) Ed Discharge Order (04/28/17 12:27) Labs Laboratory Tests Test 04/28/17 10:00 04/28/17 11:00 04/28/17 11:53 White Blood Count 13.9 TH/MM3 Red Blood Count 5.16 MIL/MM3 Hemoglobin 14.9 GM/DL Hematocrit 45.8 % Mean Corpuscular Volume 88.8 FL Mean Corpuscular Hemoglobin 28.9 PG Mean Corpuscular Hemoglobin Concent 32.5 % Red Cell Distribution Width 13.4 % Platelet Count 205 TH/MM3 Mean Platelet Volume 9.4 FL Neutrophils (%) (Auto) 90.1 % Lymphocytes (%) (Auto) 2.4 % Monocytes (%) (Auto) 4.8 % Eosinophils (%) (Auto) 0.0 % Basophils (%) (Auto) 2.7 % Neutrophils # (Auto) 12.5 TH/MM3 Lymphocytes # (Auto) 0.3 TH/MM3 Monocytes # (Auto) 0.7 TH/MM3 Eosinophils # (Auto) 0.0 TH/MM3 Basophils # (Auto) 0.4 TH/MM3 CBC Comment DIFF FINAL Differential Comment Blood Urea Nitrogen 26 MG/DL Creatinine 1.10 MG/DL Random Glucose 124 MG/DL Total Protein 7.0 GM/DL Albumin 3.3 GM/DL Calcium Level 7.9 MG/DL Alkaline Phosphatase 115 U/L Aspartate Amino Transf (AST/SGOT) 13 U/L Alanine Aminotransferase (ALT/SGPT) 18 U/L Total Bilirubin 0.6 MG/DL Sodium Level 138 MEQ/L Potassium Level 3.7 MEQ/L Chloride Level 106 MEQ/L Carbon Dioxide Level 23.4 MEQ/L Anion Gap 9 MEQ/L Estimat Glomerular Filtration Rate 49 ML/MIN Lipase 71 U/L Urine Collection Type CLEAN CATCH Urine Color YELLOW Urine Turbidity CLEAR Urine pH 6.0 Urine Specific [place] GREATER THAN 1.035 Urine Protein 30 mg/dL Urine Glucose (UA) NEG mg/dL Urine Ketones NEG mg/dL Urine Occult Blood NEG Urine Nitrite NEG Urine Bilirubin NEG Urine Leukocyte Esterase NEG Urine WBC 0-2 /hpf Urine Squamous Epithelial Cells 6-8 /hpf Urine Amorphous Sediment FEW Microscopic Urinalysis Comment CULT NOT INDICATED Urine Collection Time 1153 [facility] Medical Decision Making Medical Screen Exam Complete: Yes Emergency Medical Condition: Yes Medical Record Reviewed: Yes Differential Diagnosis Constipation, Gastritis, Acute Cholecystitis, Biliary Colic, Pancreatitis, BENSON , Hepatitis, Bowel Obstruction, Cystitis, Mesenteric Ischemia, AAA, Appendicitis , Renal Stone/Hydronephrosis, GERD, perforated viscous Narrative Course CBC & BMP Diagram 04/28/17 10:00 04/28/17 11:00 Total Protein 7.0, Albumin 3.3 L, Calcium Level 7.9 L, Alkaline Phosphatase 115 , Aspartate Amino Transf (AST/SGOT) 13 L, Alanine Aminotransferase (ALT/SGPT) 18 , Total Bilirubin 0.6 Last Impressions Abdomen/Pelvis CT 04/28/17 1012 Signed Impressions: Service Date/Time: Friday, April 28, 2017 11:38 - CONCLUSION: 1. No acute abnormality to explain the patient's pain. 2. Area of scarring involving the left kidney. Dwayne Hazel Jr., MD Urinalysis shows no UTI The patient is resting comfortably and feels better, is alert and in no distress. The patients results and examination findings were discussed. The repeat examination is unremarkable and benign. The history, exam, diagnostic testing, and current condition do not suggest any significant pathology to warrant further testing, continued ED treatment, admission, or surgical evaluation at this point. The vital signs have been stable. The patient does not have uncontrollable pain, intractable vomiting, or other significant symptoms. The patient's condition is stable and appropriate for discharge. The patient will pursue further outpatient evaluation with a primary care physician or other designated or consulting physician as indicated in the discharge instructions. The patient expressed understanding and was agreeable with this plan. Diagnosis Primary Impression: Gastroenteritis Referrals: Primary Care Physician 2 days Med/Other Pt SpecificInfo: Prescription(s) given Scripts Diphenoxylate-Atropine (Lomotil) 2.5-0.025 Mg Tab 1 TAB PO Q6H Y for DIARRHEA, #6 TAB 0 Refills Prov: Franck Ramos MD 04/28/17 Promethazine (Phenergan) 25 Mg Tablet 25 MG PO Q6H Y for NAUSEA OR VOMITING, #10 TAB 0 Refills Prov: Franck Ramos MD 04/28/17 Disposition: 01 DISCHARGE HOME Condition: Stable Franck Ramos MD Apr 28, 2017 10:12
[2017-04-28 10:40] VITALS: BP 140/60; PULSE 60; RESP 17; O2SAT 97
[2017-04-28 11:15] LABS: CHLORIDE 106 MEQ/L (98-107); SODIUM (NA) 138 MEQ/L (136-145)
[2017-04-28 11:19] LABS: ALBUMIN 3.3 GM/DL (3.4-5.0); BICARBONATE 23.4 MEQ/L (21.0-32.0); BLOOD UREA NITROGEN 26 MG/DL (7-18); CALCIUM 7.9 MG/DL (8.5-10.1); GLUCOSE,RANDOM 124 MG/DL (74-106)
[2017-04-28 11:22] LABS: ALT (GPT) 18 U/L (10-53); AST (GOT) 13 U/L (15-37); GLOMERULAR FILTRATION RATE 49 ML/MIN (>89)
[2017-04-28 11:24] LABS: TOTAL BILIRUBIN ADULT 0.6 MG/DL (0.2-1.0)
[2017-04-28 11:25] LABS: ALKALINE PHOSPHATASE 115 U/L (45-117)
[2017-04-28] MEDS ORDERED: IOHEXOL 350 MG/ML 10 ML VIAL (for RAD DIAG) IVCONTRAST ONE (11:48)
--- NOTE | 2017-04-28 12:03 | RADRPT ---
EXAM DATE/TIME: 04/28/2017 11:38 [facility] COMPARISON: CT ABDOMEN & PELVIS W CONTRAST, November 22, 2015, 20:32. INDICATIONS : Left sided abdominal pain since last night. Nausea and vomiting. IV CONTRAST: 70 cc Omnipaque 350 (iohexol) IV ORAL CONTRAST: No oral contrast ingested. RADIATION DOSE: 14.68 CTDIvol (mGy) MEDICAL HISTORY : Hypertension. Gastroesophageal reflux disease. SURGICAL HISTORY : Appendectomy. Hysterectomy. ENCOUNTER: Initial ACUITY: 2 days PAIN SCALE: 4/10 LOCATION: Left abdomen TECHNIQUE: Volumetric scanning of the abdomen and pelvis was performed. Using automated exposure control and ad justment of the mA and/or kV according to patient size, radiation dose was kept as low as reasonably achievable to obtain optimal diagnostic quality images. DICOM format image data is available electro nically for review and comparison. FINDINGS: LOWER LUNGS: The visualized lower lungs are clear. LIVER: Homogeneous density without lesion. There is no dilation of the biliary tree. No calcified gallston es. SPLEEN: Normal size without lesion. PANCREAS: Within normal limits. KIDNEYS: Normal in size and shape. There is an area of cortical scarring involving the lateral left upper pole kidney. There is no mass, stone or hydronephrosis. ADRENAL GLANDS: Within normal limits. VASCULAR: There is no aortic aneurysm. BOWEL/MESENTERY: The stomach, small bowel, and colon demonstrate no acute abnormality. There is no free intraperitone al air or fluid. ABDOMINAL WALL: Within normal limits. RETROPERITONEUM: There is no lymphadenopathy. BLADDER: No wall thickening or mass. REPRODUCTIVE: Within normal limits. INGUINAL: There is no lymphadenopathy or hernia. MUSCULOSKELETAL: Within normal limits for patient age. CONCLUSION: 1. No acute abnormality to explain the patient's pain. 2. Area of scarring involving the left kidney. Dwayne Hazel Jr., MD on April 28, 2017 at 11:58 Board Certified Radiologist. This report was verified electronically.
[2017-04-28 12:04] LABS: BILIRUBIN, URINE NEG (NEG); BLOOD, URINE NEG (NEG); GLUCOSE,URINE NEG (NEG); KETONE, URINE NEG (NEG); NITRITE,URINE NEG (NEG); URINE LEUKOCYTE ESTERASE NEG (NEG)
[2017-04-28 12:16] LABS: URINE COLOR YELLOW (YELLW/STRAW)
[2017-04-28 12:17] LABS: AMORPHOUS SEDIMENT, URINE FEW; WBC, URINE 0-2 /hpf (0-5)
[2017-04-28] MEDS ORDERED: PROM25TA10 PO (12:34)
[2017-04-28] MEDS ORDERED: LOMO2.5T PO (12:34)
== END 2017-04-28 13:27 | disposition home or self-care (01) ==
LOC: PHED 09:06
DX: K52.9 Noninfective gastroenteritis and colitis, unspecified (principal); I10 Essential (primary) hypertension; K21.9 Gastro-esophageal reflux disease without esophagitis; G25.81 Restless legs syndrome
CPT/HCPCS: 74177; 80053; 81001; 83690; 85025; 96361; 96374; 99285; J2405; J7030; Q9967